=== PATIENT | female | born 1950 | race Caucasian/White ===

== ENCOUNTER 2018-01-20 19:02 | Emergency (ER) | payer MEDICARE, BC | END 2018-01-20 19:48 | disposition home or self-care (01) | LOC: BURERS 19:02 | DX: J18.9 Pneumonia, unspecified organism (principal) | CPT/HCPCS: 94640; J7620 ==

== ENCOUNTER 2018-09-10 19:50 | Emergency (ER) | payer MEDICARE, BC ==
[2018-09-10] MEDS ORDERED: Benzonatate 100 MG CAP ONE (21:40)
--- NOTE | 2018-09-10 23:38 | RAD ---
RIGHT RIBS WITH PA CHEST 09/10/18 There appears to be a fracture of the right 7th rib. No lobar infiltrate or large effusion was seen. No pneumothorax was present. There is some basilar streaking on each side suggestive of subsegmental atelectasis. IMPRESSION: Presumed fracture of the right 7th rib. POS: HOME
== END 2018-09-10 21:50 | disposition home or self-care (01) ==
LOC: BURERS 19:50
DX: M84.48XA Pathological fracture, other site, initial encounter for fracture (principal); K21.9 Gastro-esophageal reflux disease without esophagitis; E03.9 Hypothyroidism, unspecified; E78.5 Hyperlipidemia, unspecified; Z79.899 Other long term (current) drug therapy

== ENCOUNTER 2021-03-18 18:48 | Emergency (ER) | payer MEDICARE, BC ==
[2021-03-18] MEDS ORDERED: Cephalexin 250 MG CAP ONE (19:24)
[2021-03-18] MEDS ORDERED: Sulfameth/Trimethoprim DS 800-160mg TAB ONE (19:24)
[2021-03-18] MEDS ORDERED: predniSONE 20 MG TAB ONE (19:24)
== END 2021-03-18 19:35 | disposition home or self-care (01) ==
LOC: BURERS 18:48
DX: L03.114 Cellulitis of left upper limb (principal); L03.113 Cellulitis of right upper limb
CPT/HCPCS: 99282; J7512

== ENCOUNTER 2024-06-08 16:56 | Emergency (ER) | payer MEDICARE, BC ==
[~2024-06-08 16:56] MED LIST: Iopamidol 370 76% 100 ML VIAL ONE
[2024-06-08 17:42] LABS: #Lymphocytes 0.9 thou/uL (1.20-3.40); #Neutrophils 6.8 thou/uL (1.40-6.50); %Basophils 0.3 % (0.0-1.0); %Eosinophils 0.1 % (0.0-10.0); %Lymphocytes 9.9 % (21.0-51.0); %Monocytes 11.4 % (0.0-10.0); %Neutrophils 78.2 % (42.0-75.0); Hematocrit 41.5 % (36.0-47.0); Hemoglobin 13.3 g/dL (12.0-16.0); Mean Corpuscular HGB CONC 32.1 g/dL (32.0-36.0); Mean Corpuscular Hemoglobin 29.7 pg (27.0-31.0); Mean Corpuscular Volume 92.7 fl (78.0-98.0); Mean Platelet Volume 7.5 fL (7.4-10.4); Platelet Count 191 10x3/uL (130-400); RBC Distribution Width 11.3 % (11.5-14.5); Red Blood Cell (RBC) Count 4.48 mill/uL (4.20-5.40); White Blood Cell (WBC) Count 8.7 10x3/uL (4.8-10.8)
[2024-06-08 17:57] LABS: ALT (SGPT) 52 U/L (8-55); AST (SGOT) 68 U/L (5-34); Albumin 3.1 g/dL (3.4-4.8); Alkaline Phosphatase 122 U/L (40-110); Anion Gap 17 mmol/L (10-20); BUN (Urea Nitrogen) 18 mg/dL (9.8-20.1); Bilirubin, Total 1.4 mg/dL (0.2-1.2); Calc. Creatinine Clearance 0 mL/min (70-130); Calcium 9.6 mg/dL (7.8-10.44); Carbon Dioxide 22 mmol/L (23-31); Chloride 101 mmol/L (98-107); Estimated GFR 51; Globulin 4.2 g/dL (2.4-3.5); Glucose 116 mg/dL (83-110); Magnesium 1.7 mg/dL (1.6-2.6); Potassium 4.1 mmol/L (3.5-5.1); Protein, Total 7.3 g/dL (5.8-8.1); Sodium 136 mmol/L (136-145)
[2024-06-08 18:01] LABS: Troponin I 0.012 ng/mL (< 0.028)
[2024-06-08 18:39] LABS: Bilirubin Negative (Negative); Blood, Urine Moderate (Negative); Clarity Cloudy (Clear); Glucose, Urine (Dipstick) Negative (Negative); Ketone, Urine Negative (Negative); Leukocyte Moderate (Negative); Nitrite Positive (Negative); Protein, Urine (Dipstick) 30 mg/dL (Neg-Trace); pH, Urine 5.5 (5.0-9.0)
[2024-06-08 18:51] LABS: Bacteria/HPF 4+ HPF (None Seen); CAUTI Indications for Culture Dysuria,urgency,freq; WBC/HPF Greater than 50 HPF (0-3)
[2024-06-08 18:53] LABS: Urine Culture Reflex Yes Yes
[2024-06-08] MEDS ORDERED: Sulfameth/Trimethoprim DS 800-160mg TAB ONE (18:58)
== END 2024-06-08 19:19 | disposition home or self-care (01) ==
LOC: BURERS 16:56
DX: N10 Acute pyelonephritis (principal); I10 Essential (primary) hypertension
CPT/HCPCS: 71045; 74177; 80053; 81001; 83735; 83880; 84484; 85025; 87077; 87086; 93005; 94760; Q9967; 87186; 96360